=== PATIENT | female | born 1970 | race American Indian/Alaskan Native ===

== ENCOUNTER 2018-12-14 20:52 | Emergency (ER) | payer OTHER ==
[2018-12-14 21:59] VITALS: BP 128/82
--- NOTE | 2018-12-14 22:00 | Emergency Department Report ---
Blank Doc - Documentation Documentation: 48 y o female presents to ED cc of pain in between her toes x a while, states pain to bilateral toes denies trauma,injury or fall also cc of irregular cycle with vaginal d/c with itching currently on her cycle now, wants to be treated for her vaginal d/c and itching because she is having pelvic pain. fungal toe infection possibly STD/BV/yeast reevaluate
[2018-12-14 23:10] LABS: Bacteria,Urine 1+ /HPF (Negative); Bilirubin,Urine NEG (Negative); Blood,Urine MOD (Negative); Color,Urine Colorless (Yellow); Protein,Urine <15 mg/dL mg/dL (Negative); Urobilinogen,Urine < 2.0 mg/dL (<2.0)
--- NOTE | 2018-12-15 00:15 | Emergency Department Report ---
ED Female HPI - General Chief complaint: Urogenital-Female Stated complaint: BILATERAL LEG PAIN/VAG DISCHARGE Time Seen by Provider: 12/14/18 21:54 Source: patient Mode of arrival: Ambulatory Limitations: No Limitations - History of Present Illness Initial comments: 48-year-old -[place] female presents to the emergency room for soreness between her right foot between the third and fourth toe. Patient reports vaginal discharge for 3 weeks mostly after her menses. Patient has taken nothing for pain. Patient denies any fever chills denies any back pain nausea vomiting abdominal pain. -: week(s) (3 vag d/c), month(s) (3 for foot pain) - Related Data Allergies Allergy/AdvReac Type Severity Reaction Status Date / Time No Known Allergies Allergy Unverified 12/14/18 20:58 ED Review of Systems ROS: Stated complaint: BILATERAL LEG PAIN/VAG DISCHARGE Other details as noted in HPI Comment: All other systems reviewed and negative Skin: lesions ED Past Medical Hx - Past Medical History Previous Medical History?: No Hx Hypertension: No Hx CVA: No Hx Heart Attack/AMI: No Hx Congestive Heart Failure: No Hx Diabetes: No Hx Deep Vein Thrombosis: No Hx Pulmonary Embolism: No Hx GERD: No Hx Liver Disease: No Hx Renal Disease: No Hx of Cancer: No Hx Sickle Cell Disease: No Hx Arthritis: No Hx Headaches / Migraines: No Hx Seizures: No Hx Kidney Stones: No Hx Psychiatric Treatment: No Hx Asthma: No Hx COPD: No Hx Tuberculosis: No Hx Dementia: No Hx HIV: No - Surgical History Past Surgical History?: No Hx Coronary Stent: No Hx Open Heart Surgery: No Hx Pacemaker: No Hx Internal Defibrillator: No Hx Cholecystectomy: No Hx Appendectomy: No Hx Breast Surgery: No - Social History Smoking Status: Never Smoker Substance Use Type: None ED Physical Exam - General Limitations: No Limitations ED Course Vital Signs 12/14/18 21:55 Temperature 98.3 F Pulse Rate 104 H Respiratory 18 Rate Blood Pressure 128/82 O2 Sat by Pulse 100 Oximetry Critical care attestation.: If time is entered above; I have spent that time in minutes in the direct care of this critically ill patient, excluding procedure time. ED Disposition Clinical Impression: Callus of foot, Vaginal discharge Disposition: DC- TO HOME OR SELFCARE Is pt being admited?: No Does the pt Need Aspirin: No Condition: Stable Additional Instructions: Please follow up with Dr. Gilbert who is a snowboarder that is a senior technical specialist. Please follow-up with [facility]. You can take Tylenol or Motrin for pain management. Referrals: MALIKA COSTELLO [Primary Care Provider] - 3-5 Days ELBERT GILBERT DPM [Staff Physician] - 3-5 Days [facility] [Provider Group] - 3-5 Days [facility] [Provider Group] - 3-5 Days
== END 2018-12-15 00:17 | disposition home or self-care (01) ==
LOC: EDBD → ED 20:52
DX: M79.671 Pain in right foot (principal); N89.8 Other specified noninflammatory disorders of vagina
CPT/HCPCS: 81001; 99283